=== PATIENT | female | born 1940 | race Caucasian/White ===

== ENCOUNTER 2022-07-18 22:32 | Inpatient (IN) | payer MEDICARE ==
[~2022-07-18] VITALS: Ht 157.5 cm; Wt 65.2 kg
[2022-07-19] VITALS (12 sets, daily range): BP systolic 11–130; BP diastolic 56–106
[2022-07-19 02:39] LABS: Source, Urine Clean Catch
[2022-07-19 02:52] LABS: Bilirubin, Urine Neg (Neg); Blood, Urine Neg (Neg); Glucose Qualitative, Urine Neg (Neg); Ketones, Urine Neg (Neg); Leukocyte Esterase, Urine Neg (Neg); Nitrite, Urine Neg (Neg); Protein, Urine Neg (Neg); Specific Gravity, Urine 1.015 (1.003-1.022); Urobilinogen, Urine NORM (Normal)
[2022-07-19 03:03] LABS: Appearance, Urine Clear (Clear); Color, Urine Yellow (P-Yellow)
[2022-07-19 06:22] LABS: BASOPHILS ABSOLUTE AUTO 0.06 K/mm3 (0.00-0.23); BASOPHILS PERCENT AUTO 0 % (0-2); EOSINOPHILS ABSOLUTE AUTO 0.01 K/mm3 (0.00-0.68); EOSINOPHILS PERCENT AUTO 0 % (0-6); Hematocrit 23.2 % (33.0-51.0); Hemoglobin 6.7 g/dL (11.5-16.0); IMMATURE GRAN ABSOLUTE AUTO 0.21 K/mm3 (0.00-0.10); IMMATURE GRAN PERCENT AUTO 1 % (0-1); LYMPHOCYTES ABSOLUTE AUTO 0.56 K/mm3 (0.84-5.20); LYMPHOCYTES PERCENT AUTO 3 % (21-46); MONOCYTES ABSOLUTE AUTO 1.54 K/mm3 (0.16-1.47); MONOCYTES PERCENT AUTO 7 % (4-13); Mean Corpuscular HGB 21.8 pg (26.0-34.0); Mean Corpuscular HGB Conc 28.9 g/dL (31.5-36.5); Mean Corpuscular Volume 76 fL (80-100); Mean Platelet Volume 11.1 fL (9.1-12.4); NEUTROPHILS ABSOLUTE AUTO 20.14 K/mm3 (1.96-9.15); NEUTROPHILS PERCENT AUTO 90 % (41-73); NRBC ABSOLUTE 0.04 K/mm3 (0.00-0.02); NRBC Auto 0.2 /100 WBC (0.0-0.2); Platelet Count 193 K/mm3 (150-400); RDW Coefficient Variation 17.7 % (11.7-14.2); RDW Standard Deviation 48.5 fL (35.1-46.3); Red Blood Cell Count 3.07 M/mm3 (3.80-5.20); White Blood Cell Count 22.52 K/mm3 (4.00-11.30)
[2022-07-19 06:56] LABS: Albumin, Blood 2.9 g/dL (3.4-5.0); Albumin/Globulin Ratio 0.9 (0.8-1.8); Bilirubin, Total 1.1 mg/dL (0.1-1.0); Bun/Creatinine Ratio 14.9 (12.0-20.0); Calcium, Blood 8.3 mg/dL (8.5-10.1); Creatinine, Blood 1.95 mg/dL (0.40-1.00); Globulin, Blood 3.3 g/dL (2.2-4.0); Potassium, Blood 3.8 mmol/L (3.5-5.5); Total Protein, Blood 6.2 g/dL (6.4-8.2)
--- NOTE | 2022-07-19 07:33 | NUR ---
SHIFT SUMMARY PT ARRIVED TO PCU VIA FLIGHT PLANE AT 0000. PT ALERT BUT ORIENTED ONLY TO SELF. PT CONFUSED; WAXES AND WANES BETWEEN PLEASANT AND RESISTANT TO CARE. VSS THROUGHTOUT, HR V PACED IN 80 - 90'S. PT REFUSED BATH, REFUSED TO BE STRAIGHT CATH'D EVEN THOUGH OF NOTE BLADDER SCAN SHOWED 650. PT WAS ABLE TO VOID A FEW TIMES SINCE TOTAL OF 400 OUT. PT REFUSED TO GET IN BED AT TIMES, HARD TO REDIRECT AT TIMES AND THEN OTHERS PT IS PLEASANT AND EASILY REDIRECTABLE. PT FINALLY ABLE TO REST A FEW HOURS, WAKES UP AND CALLS OUT WHEN SHE NEEDS SOMETHING, PT DOES NOT USE CALL LIGHT. BED ALARM ON. NO ACUTE CHANGES THIS SHIFT. WILL UPDATE ONCOMING TITUS
--- NOTE | 2022-07-19 10:14 | NUR ---
AM NOTE: PT ALERT AND ORIENTED TO PERSON AND SELF. ABLE TO ANSWER SOME QUESTIONS. PT COOPERATIVE WITH CARE MOST OF THE TIME. PT ABLE TO AMBULATE TO THE COMMODE WITH 1-2 PERSON ASSIST PT UNABLE TO VOID, BLADDER SCAN OBTAINED WITH [address] HERNÁNDEZ MADE AWARE AND WANTS TO CONTINUE TO MONITOR AND RESCAN IN TWO HOURS IF PT CONTINUES TO NOT VOID. PT STATES SHE HAS A SON AND A SIGNIFICANT OTHER HOWEVER WHEN ASKED WHO THEIR NAMES ARE PT STATES "IT BEATS THE HELL OUT OF ME WHO THEY ARE" . PT SBP IN THE 110'S WITH HR PACED IN THE 90'S. PT DENIES CHEST PAIN/ PRESSURE OR SOB. PT ABLE TO TOLERATE MEALS WITH NO C/O N/V. AT THE BEDSIDE THIS MORNING AND MADE PT MEDICAL STATUS WITH TELE. PT GOING TO RECEIVE 2 UNITS PRBC'S. WILL CONTINUE TO MONITOR.
--- NOTE | 2022-07-19 17:52 | NUR ---
SHIFT SUMMARY: NO ACUTE EVENTS T/O THE SHIFT. PT RECEIVED TWO UNITS PBRC'S WITHOUT COMPLICATIONS. PT REMAINED A&O X1-2 WITH SPELLS OF CONFUSION AND YELLING OUT FOR HELP, WITH MULTIPLE ATTEMPTS TO GET OUT OF BED AND SETTING BED ALARM OFF. PT ABLE TO AMBULATE TO THE BSC WITH 1-2 PERSON ASSIST. ABLE TO VOID AT TIMES WITH 200-300 ML OUTPUT, WITH EPISODES OF RETENTION. PT STRAIGHT CATHED THIS AFTERNOON WIHT 600 ML OUTPUT PER PROTOCOL. PT VSS, SBP IN THE 120'S, HR IN THE 90'S WITH BOUTS OF TACHYCARDIA TO THE 140'S ON EXERTION METOPROLOL IV ONE DOSE GIVEN BY PRIMARY RN PT MOSTLY STAYING IN THE 90-115'S. PT TRANSFERRED TO THE MEDICAL FLOOR AT 1745 ALL BELONGINGS SENT WITH THE PT, REPORT GIVEN TO CRISTOBAL Weiner RN. STEP-DAUGHTER AT THE BEDSIDE AND UPDATED TO PLAN OF CARE BROUGHT IN ADVANCE DIRECTIVE AN DPACEMAKER INFORMATION COPY IN THE CHART AND NOTIFIED PALLIATIVE CARE. PRIMARY RN CALLED DR. DEGROOT FOR F/U H&H TO F/U WITH MORNING LABS.
--- NOTE | 2022-07-19 19:14 | NUR ---
SHIFT SUMMARY/TRANSFER SUMMARY PT ARRIVED FROM PCU VIA BED. PT TUCKED IN, VITALS SIGNS, AND 2 RN SKIN ASSESSMENT COMPLETED. UP WITH HEAVY 2 ASSIST. AXO X1-2 AND INUPIAT. SEPSIS ALERT ON SHIFT ASSESSMENT DISCUSSED WITH TITUS CHATMAN LINUX SYSTEM ENGINEER NURSE WHO WILL ASSUME CARE AT THIS TIME. FULL REPORT GIVEN WELL. PT ON TELE. V-PACED AT 120 BUT RATE SPIKED UP TO 170 DURING THE CALL TO TELEMETRY. BED IN LOW POSITION, CALL LIGHT WITHIN REACH. PT'S DAUGHTER IN LAW CAME FROM [place] AND IS STAYING IN A HOTEL CLOSE BY.
--- NOTE | 2022-07-19 19:51 | NUR ---
CALLED HOSPITALIST INFORMED HIM OF PT'S ANEMIA AND HOSPITALIST'S PLAN TO HOLD ANTICOAGS FOR NOW. VERIFIED THAT WE ARE TO HOLD ELLIQUIS FOR THIS EVENING.
[2022-07-19] MEDS ORDERED: ELIQUIS5 M2 PO (20:02)
--- NOTE | 2022-07-19 20:19 | NUR ---
CALLED AUTOMOBILE RENTAL AGENT INFORMED HIM THAT TELEMETRY CALLED ME TO TELL ME ABOUT ST ELEVATIONS THAT HAVE BEEN PRESENT FROM ADMIT. I ALSO INFORMED HIM ABOUT REPORTED TACHYCARDIC EPISODES THAT ARE HAPPENING Q 15 MINUTES. NEW STAT LABS ORDERED, STAT EKG, SERIAL TROPONINS. PT PULLED OUT HER IV I WAS ON THE PHONE WITH THE AUTOMOBILE RENTAL AGENT. WE ARE ATTEMPTING TO RE-ESTABLISH VENOUS ACCESS NOW
[2022-07-19 20:59] LABS: BASOPHILS ABSOLUTE AUTO 0.06 K/mm3 (0.00-0.23); BASOPHILS PERCENT AUTO 0 % (0-2); EOSINOPHILS ABSOLUTE AUTO 0.01 K/mm3 (0.00-0.68); EOSINOPHILS PERCENT AUTO 0 % (0-6); Hematocrit 36.1 % (33.0-51.0); Hemoglobin 11.5 g/dL (11.5-16.0); IMMATURE GRAN ABSOLUTE AUTO 0.35 K/mm3 (0.00-0.10); IMMATURE GRAN PERCENT AUTO 1 % (0-1); LYMPHOCYTES ABSOLUTE AUTO 0.87 K/mm3 (0.84-5.20); LYMPHOCYTES PERCENT AUTO 3 % (21-46); MONOCYTES ABSOLUTE AUTO 2.56 K/mm3 (0.16-1.47); MONOCYTES PERCENT AUTO 9 % (4-13); Mean Corpuscular HGB 24.1 pg (26.0-34.0); Mean Corpuscular HGB Conc 31.9 g/dL (31.5-36.5); Mean Corpuscular Volume 76 fL (80-100); NEUTROPHILS ABSOLUTE AUTO 24.28 K/mm3 (1.96-9.15); NEUTROPHILS PERCENT AUTO 86 % (41-73); NRBC ABSOLUTE 0.15 K/mm3 (0.00-0.02); NRBC Auto 0.5 /100 WBC (0.0-0.2); Platelet Count 192 K/mm3 (150-400); RDW Coefficient Variation 17.2 % (11.7-14.2); RDW Standard Deviation 45.6 fL (35.1-46.3); Red Blood Cell Count 4.78 M/mm3 (3.80-5.20); White Blood Cell Count 28.13 K/mm3 (4.00-11.30)
--- NOTE | 2022-07-19 21:18 | NUR ---
FAMILY OF PATIENT CALLED REPORTS THAT THIS PATIENT HAS A HISTORY OF SHINGLES OUTBREAKS. PT HAS A NEWER RASH THAT HAS APPEARED UNDER THE LEFT BREAST. ANTI FUNGAL POWDER WAS APPLIED ON PREVIOUS SHIFT. THE CHARGE AND I VIEWED THIS RASH AND IT APPEARS TO BE FUNGAL IN ORIGIN. WE WILL CONTINUE TO MONITOR THIS.
--- NOTE | 2022-07-19 22:39 | NUR ---
SHIFT SUMMARY ADMITTED FOR AFIB W/RVR & ANEMIA & CHF FROM [facility]. DNR CODE. POSSIBLE PNEUMONIA. TELEMETRY REPORTS ST ELEVATIONS SINCE ADMIT, PERIODS OF TACHYCARDIA - UNSUSTAINED. 2 UNITS OF PRBC'S GIVEN FOR ANEMIA. TROPONIN WAS 464, NOW TROPONIN IS 566. WE ARE TRENDING TROPONINS. RASH UNDER RIGHT BREAST AND UNDER PANNUS, APPEARS FUNGAL. HOWEVER, PT DOES HAVE A HX OF SHINGLES ACCORDING TO FAMILY. WE ARE HOLDING ELIQUIS FOR NOW DUE TO ANEMIA. (BNP WAS 2412) SHE WAS GIVEN LASIX DURING AM SHIFT, AND IS NOW EXPERIENCING FREQUENCY. FAMILY REPORTS CONFUSION FOR THE PAST MONTH.
[2022-07-20 05:37] VITALS: BP 131/72
[2022-07-20 07:24] VITALS: BP 134/80
[2022-07-20 13:21] LABS: Hematocrit 35.6 % (33.0-51.0); Hemoglobin 11.1 g/dL (11.5-16.0); Mean Corpuscular HGB 23.9 pg (26.0-34.0); Mean Corpuscular HGB Conc 31.2 g/dL (31.5-36.5); Mean Corpuscular Volume 77 fL (80-100); Mean Platelet Volume 11.7 fL (9.1-12.4); NRBC Auto 0.4 /100 WBC (0.0-0.2); Platelet Count 201 K/mm3 (150-400); RDW Coefficient Variation 17.5 % (11.7-14.2); RDW Standard Deviation 47.6 fL (35.1-46.3); Red Blood Cell Count 4.65 M/mm3 (3.80-5.20)
[2022-07-20 14:18] LABS: Albumin, Blood 2.6 g/dL (3.4-5.0); Anion Gap 12 mmol/L (6-16); Blood Urea Nitrogen 42 mg/dL (8-24); Bun/Creatinine Ratio 19.7 (12.0-20.0); CO2, Blood 24 mmol/L (21-32); Calcium, Blood 8.6 mg/dL (8.5-10.1); Chloride, Blood 106 mmol/L (98-108); Creatinine, Blood 2.13 mg/dL (0.40-1.00); Glomerular Filtration Rate 23 (60-); Glucose, Blood 108 mg/dL (70-99); Phosphorus, Blood 4.5 mg/dL (2.5-4.9); Potassium, Blood 3.6 mmol/L (3.5-5.5); Sodium, Blood 142 mmol/L (136-145)
[2022-07-20 14:56] VITALS: BP 105/68
--- NOTE | 2022-07-20 17:14 | NUR ---
SHIFT SUMMARY ELIQUIS DCED UNTIL STOOL SAMPLE CAN BE COLLECTED. NO STOOL YET THIS SHIFT. PT HAD NEW PG PLACED TO OMAR OTHER IV ACCESS WAS NO LONGER PATENT. PT VERY SLEEPY TODAY, WHEN NOT BEING SPOKEN TO, FALLS ASLEEP EASILY. PT DOES TRY TO PULL OFF TELE AN PURE WIKE WHEN AWAKE HOWEVER. NO ACUTE CHANGES IN ASSESSMENT AT THIS TIME. VS REVIEWED. PT UP IN CHAIR WITH DAUGHTER IN ROOM.
[2022-07-20 20:10] VITALS: BP 125/84
--- NOTE | 2022-07-21 04:03 | NUR ---
SHIFT SUMMARY ADMITTED FOR AFIB W/RVR, ANEMIA, PNEUMONIA. DNR CODE. WE HAVE BEEN DIURESING HER. ANTIB RX ARE SCHEDULED. ECHO PERFORMED ON PREVIOUS SHIFT. RASH UNDER BREAST AND PANNUS. DIARRHEA REPORTED. MX LABS FOR ANEMIA. SHE WAS LIVING ALONE IN [place], REPORTEDLY DECLINING IN FUNCTION AND ADL'S OVER PAST MONTH. STEP DAUGHTER IS AVAILABLE TO HELP HER FOLLOWING DC. TELEMETRY: AFIB W/OCCASIONAL VENTRICULAR PACING @ 109 BPM. THIS SHIFT SHE REMOVED HER POWERGLIDE LINE. SHE HAS REMOVED ALL IV'S PLACED SINCE ADMIT. SHE IS A&O TO SELF MOSTLY. SHE IS ON RA. MEDS CRUSHED W/APPLESAUCE. CARDIAC DIET. SHE IS ON ELIQUIS AT HOME, CURRENTLY ON HOLD HERE.
[2022-07-21 07:21] VITALS: BP 113/79
[2022-07-21 10:32] LABS: Stool Occult Bld Immuno 1 Negative (NEGATIVE)
--- NOTE | 2022-07-21 11:38 | NUR ---
SPOKE TO DR HERNÁNDEZ- PT HAS BEEN GETTING MEDS CRUSHED IN APPLESAUCE FOR PT SAFETY. PT CAN NOT FOLLOW INSTRUCTIONS WELL TO SWALLOW MEDS WHOLE SO SHE WILL CHEW THEM. SPOKE TO PHARMACY SOME MEDS CAN BE CRUSHED AND SOME CAN'T. SPOKE TO MD ABOUT THE MEDS SHE WILL REVIEW AND MAKE CHANGES.
[2022-07-21 11:46] VITALS: BP 111/30
[2022-07-21 11:51] VITALS: BP 115/72
--- NOTE | 2022-07-21 12:40 | NUR ---
Initial palliative care consult: Melody is an 82 year old with a history of a-fib, pacemaker, HTN, hypothyroidism, anemia, CKD. She was transferred from the [facility] on 07/19/22 with a-fib with RVR and SHAR. Melody is confused. She is sitting in her bedside and falling asleep. Her step daughter, Ginny, is in the room. Ginny is getting ready to leave to head to [place] to meet her nephew who checks in on Melody. Ginny has been in contact with agencies in the [facility] to plan for Melody's discharge care. Emotional support provided to Melody and Ginny. Melody denies any discomfort at this time. CM has been working with Ginny re: discharge planning. PC will remain available for support for Ginny and Melody.
[2022-07-21 13:56] VITALS: BP 93/57
--- NOTE | 2022-07-21 14:22 | NUR ---
CALLED [facility] IN [address] TO TRY TO GET AN ACTIVE MEDICATION LIST FOR THE PT. WILL RECONCILE ONCE RECIEVED.
--- NOTE | 2022-07-21 14:59 | NUR ---
PT HAS NO IV ACCESS- CALLED DR HERNÁNDEZ EARLIER IN THE SHIFT AND SHE IS AWARE. PT HAS TELE AND IS SUPPOSED TO HAVE IV ACCESS WITH TELE. PT HAS BEEN ADIMANTLY REFUSING IV PLACEMENT TODAY. WILL SPEAK WITH HER MORE WHEN SHE WAKES FROM HER NAP.
[2022-07-21] MEDS ORDERED: METO50ER PO (15:18)
[2022-07-21] MEDS ORDERED: FURO20 PO (15:18)
[2022-07-21] MEDS ORDERED: LEVSOD25 PO (15:19)
[2022-07-21] MEDS ORDERED: LOSARTAN POTAS100 MG PO (15:19)
[2022-07-21] MEDS ORDERED: FEROSUL325 MG PO (15:20)
[2022-07-21 15:21] VITALS: BP 103/64
--- NOTE | 2022-07-21 18:09 | NUR ---
SHIFT SUMMARY PT IS AN 82 YR OLD FEMALE HERE FROM [place] WHERE SHE WAS LIVING ALONE. PER PTS STEP DAUGHTER AWAIS SUDDEN DECLINE. HX OF A FIB WITH RVR, RECENT PACER PLACEMENT, AND CHF. SHE IS ORIENTED TO PERSON AND RESPONSES TO VERBAL SIMULI, AND WILL OCCASSIONALLY OPEN EYES. RESPONSE WELL TO YES AND NO QUESTIONS. NO IV ACCESS DUE TO THE PATIENT REMOVING PERIPHERAL AND CENTRAL LINE ACCESS MULTIPLE TIMES. HBG ON 07/19 WAS 6.7, CORRECTED WITH 1 UNIT OF PRBC AND NOW STABLE AT 11.1. OCCULT STOOL NEGATIVE. SHE HAS BEEN SLEEPING MOST OF THE DAY, DENIES PAIN, PUREWICK IN PLACE AND IN BED AT THIS TIME.
[2022-07-21 19:21] VITALS: BP 119/64
[2022-07-22 03:08] VITALS: BP 109/79
[2022-07-22 05:49] LABS: Hematocrit 40.6 % (33.0-51.0); Mean Corpuscular HGB 24.5 pg (26.0-34.0); Mean Corpuscular Volume 77 fL (80-100); Mean Platelet Volume 11.2 fL (9.1-12.4); NRBC ABSOLUTE 0.04 K/mm3 (0.00-0.02); NRBC Auto 0.2 /100 WBC (0.0-0.2); RDW Standard Deviation 50.4 fL (35.1-46.3); Red Blood Cell Count 5.31 M/mm3 (3.80-5.20); White Blood Cell Count 25.37 K/mm3 (4.00-11.30)
[2022-07-22 06:06] LABS: Platelet Count 158 K/mm3 (150-400)
[2022-07-22 06:14] LABS: Albumin, Blood 2.6 g/dL (3.4-5.0); Anion Gap 13 mmol/L (6-16); Blood Urea Nitrogen 64 mg/dL (8-24); Bun/Creatinine Ratio 26.2 (12.0-20.0); CO2, Blood 26 mmol/L (21-32); Calcium, Blood 8.8 mg/dL (8.5-10.1); Chloride, Blood 105 mmol/L (98-108); Creatinine, Blood 2.44 mg/dL (0.40-1.00); Glomerular Filtration Rate 19 (60-); Glucose, Blood 124 mg/dL (70-99); Phosphorus, Blood 3.8 mg/dL (2.5-4.9); Sodium, Blood 144 mmol/L (136-145)
--- NOTE | 2022-07-22 06:49 | NUR ---
Shift Summary Pt AOx1, calls out in her sleep but denies any pain or nausea. On tele running AFIB at 115. Incontinent, purewick in place. Per report pt removed all attempts at IV and powerglide access despite them being heavily wrapped. Cooperative with care, slept t/o the night.
[2022-07-22 07:27] VITALS: BP 114/83
--- NOTE | 2022-07-22 14:58 | NUR ---
DR HERNÁNDEZ NOTIFIED OF BLADDER SCAN RESULTS, 58 ML AND THAT ECHO RESULTS FROM [facility]IE ARE IN THE CHART. DR HERNÁNDEZ TO REVIEW.
[2022-07-22 15:03] VITALS: BP 92/59
[2022-07-22 15:12] VITALS: BP 115/72
--- NOTE | 2022-07-22 19:15 | NUR ---
SHIFT SUMMARY PT AXO TO SELF ONLY. PT WAKES ONLY TO TACILE OR VERBAL STIMULATION. ANSWERS QUESTIONS "UH HUH" OR "NO." VSS. TAKES MEDICATIONS CRUSHED IN APPLESAUCE. NO ACUTE CHANGES THIS SHIFT. CT DONE TODAY, SEE RESULTS. BED IN LOW POSITION, CALL LIGHT WITHIN REACH. PT'S DAUGHTER AWAIS UPDATED AT END OF SHIFT. SHE STATES THAT KASI ALDANA WILL BE IN TO ASSESS PATIENT TOMORROW TO HELP AWAIS WITH PLACEMENT. NO IV IN PLACE AT THIS TIME R/T PT PULLING OUT ALL IV'S.
[2022-07-22 20:55] VITALS: BP 116/85
--- NOTE | 2022-07-23 01:10 | NUR ---
Afib Exasurbation Pt HR is spiking up to 150-[address] Nascimento who ordered 25 mg Metoprolol Tartrate PO now. Gave medication, will CTM.
[2022-07-23 02:42] VITALS: BP 110/78
[2022-07-23 05:54] LABS: BASOPHILS ABSOLUTE AUTO 0.05 K/mm3 (0.00-0.23); BASOPHILS PERCENT AUTO 0 % (0-2); EOSINOPHILS PERCENT AUTO 0 % (0-6); Hematocrit 38.3 % (33.0-51.0); Hemoglobin 11.9 g/dL (11.5-16.0); IMMATURE GRAN ABSOLUTE AUTO 0.25 K/mm3 (0.00-0.10); IMMATURE GRAN PERCENT AUTO 1 % (0-1); LYMPHOCYTES ABSOLUTE AUTO 0.48 K/mm3 (0.84-5.20); LYMPHOCYTES PERCENT AUTO 2 % (21-46); MONOCYTES PERCENT AUTO 9 % (4-13); Mean Corpuscular HGB 23.9 pg (26.0-34.0); Mean Corpuscular HGB Conc 31.1 g/dL (31.5-36.5); Mean Corpuscular Volume 77 fL (80-100); NEUTROPHILS ABSOLUTE AUTO 21.56 K/mm3 (1.96-9.15); NEUTROPHILS PERCENT AUTO 88 % (41-73); NRBC ABSOLUTE 0.02 K/mm3 (0.00-0.02); NRBC Auto 0.1 /100 WBC (0.0-0.2); RDW Coefficient Variation 20.3 % (11.7-14.2); RDW Standard Deviation 52.7 fL (35.1-46.3); Red Blood Cell Count 4.97 M/mm3 (3.80-5.20); White Blood Cell Count 24.54 K/mm3 (4.00-11.30)
[2022-07-23 06:25] LABS: Albumin, Blood 2.5 g/dL (3.4-5.0); Albumin/Globulin Ratio 0.7 (0.8-1.8); Bilirubin, Total 0.7 mg/dL (0.1-1.0); Bun/Creatinine Ratio 26.3 (12.0-20.0); Calcium, Blood 8.5 mg/dL (8.5-10.1); Creatinine, Blood 2.55 mg/dL (0.40-1.00); Globulin, Blood 3.5 g/dL (2.2-4.0); Magnesium, Blood 2.3 mg/dL (1.6-2.4); Percent Saturation 5.9 % (15.0-50.0); Potassium, Blood 3.1 mmol/L (3.5-5.5)
--- NOTE | 2022-07-23 06:32 | NUR ---
Shift Summary Pt had an AFIB exacurbation, was given a one time order of metropolol which helped the spikes in her HR, see nursing note. She was also crying out in distress and was restless. Called hospitalist who ordered 5mg Oxycodone one time. This greatly reduced her signs of pain but I was unable to wake her up enough to take her [address] draining small amounts of dark yellow urine. Pt did eat 1.5 cups of applesauce tonight which she enjoyed.
[2022-07-23 07:19] VITALS: BP 122/89
[2022-07-23 07:26] LABS: Mean Platelet Volume 10.6 fL (9.1-12.4)
[2022-07-23 07:32] LABS: Platelet Count 106 K/mm3 (150-400)
[2022-07-23 14:54] VITALS: BP 106/65
--- NOTE | 2022-07-23 15:16 | NUR ---
pt aggiated at time but mostly just resting. Review of pt with staff and physician. Physician review of comorbid conditions and new diagnosis presents as hospice the best option. Discussion with Nimo about comfort care she states that her and the family are in alignment with placing her on hospice and comfort care. notified physician and comfort orders placed. pt very petite and frail dosing modified to accomadate her age and size with permission from phsycian. Will adjust if needed. Long conversation with Nimo about a plan of care. She gave the names of some of the places she was going to call. She has started the medicaid process. advised her that [facility] is the home health and hospice team in their region. She states they know her from her partner and tried to work with her and she would not talk to them. Made tiffany call to have her put on list to hopefully avaoid delays. Will update care managers get formal consent and a plan. Called [facility] they do take patient on hospice. updated Nimo on some of this information. She is very fatigued and distraught. Will continue to support. comfort quilt placed.
[2022-07-23 15:35] VITALS: BP 117/80
--- NOTE | 2022-07-23 16:39 | NUR ---
SARABJIT WAS SOMNOLENT THROUGH MOST OF THE SHIFT, AND INTERMITTENTLY DIFFICULT TO ROUSE. PT DOES NOT OPEN HER EYES, AND RESPONDS WITH YES OR NO BUT NOT ALWAYS APPROPRIATELY. SHE WOKE UP FOR MEALS AND TOLERATED FOOD WELL WITH ENCOURAGEMENT. PT SEEMS ANXIOUS AND MOANS WHEN AWAKE AND ALONE IN ROOM. PT WAS CHANGED TO COMFORT CARE DURING THIS SHIFT.
--- NOTE | 2022-07-23 17:07 | NUR ---
AM ASSESSMENT I AGREE WITH THE STUDENT RN HIRO'S AM ASSESSMENT AND DOCUMENTATION ON THIS PATIENT TODAY
--- NOTE | 2022-07-24 05:33 | NUR ---
SHIFT SUMMARY RESPONDS TO VERBAL AND STIUMLI, ORIENTED TO SELF ONLY. COMFORT CARE MEASURES IN PLACE. MOANS OUT OFTEN. FACE SCALE 8/10, MEDICATED PER EMAR WITH GOOD EFFECT. BED IN LOWEST POSITION, ALARM ON, CALL LIGHT IN REACH. WILL CONTINUE TO MONITOR AND REPORT TO ONCOMING RN.
--- NOTE | 2022-07-24 17:02 | NUR ---
ASSESSMENTS I AGREE WITH THE STUDENT RN HIRO'S AM ASSESSMENT AND DOCUMENTATION OF THIS PT
--- NOTE | 2022-07-24 17:35 | NUR ---
PT IS ALERT RESPONDS TO VERBAL STIMULI DOES NOT OPEN HER EYES. THE PT SLEPT FOR MOST OF THE DAY AWAKENED FOR MEALS. THE PT WHEN AWAKE MOANED THOUGH SHE WAS IN PAIN PT WAS REPOSITIONED FREQUANTLY AND WAS MEDICATED FOR PAIN T/O THE DAY. PT APPEARS TO BE BREATHING EASILY ON RA. CALL LIGHT IN REACH. WILL CONTINUE TO MONIOTR AND ASSESS FOR CHANGES
[2022-07-25] MEDS ORDERED: ELIQUIS5 M3 PO (02:18)
--- NOTE | 2022-07-25 11:20 | NUR ---
SPOKE TO DR RILEY RE PT STILL MOANING. ROXANOL GIVEN, ATIVAN NOT AVAIL YET. SHE TO ADJUST MEDS
--- NOTE | 2022-07-25 12:35 | NUR ---
Care Conference: Spoke with pt's step daughter Nimo this am, she had continued questions about pt's living situation after this hospitalization. According to the notes and Nimo, the pt is unable to return home, as she has had severe mentation changes recently, going from fully independent to total care. She has declined to the point she is now on comfort care, awaiting placement. There was also some confusion on Nimo's part, as she is admittedly "overwhelmed" and is seeking and getting information from multiple sources. Working with Carmen, [employer] and Shanique at [facility] [employer] to create an appropriate d/c plan for this pt.
--- NOTE | 2022-07-25 13:20 | NUR ---
Pt no longer waking. She appears comfortable at this time, and both bedside RN and Hospitalist are aware. Informed pt's step-daughter that pt is transitioning, and will likely pass here at the hospital, and if the family is hoping to see her again, they will need to come here to [facility], and likely need to come in the next couple of days. Nimo mcgee Also called Shanique at [employer], thanked her for her time. Playroom Attendant also notified.
--- NOTE | 2022-07-25 19:29 | NUR ---
PT HAS BEEN SLEEPING, BREATHING EASILY, 12-16 RESP T/O DAY. GAVE ROXANOL THIS AM FOR HER MOANING OUT. SHE IS NOT ABLE TO EAT OR DRINK AT THIS TIME. I CALLED DR CONNORS TO ASK FOR INCREASED PAIN MEDS THIS AM SHE DID NOT APPEAR CONSOLED WITH THE 5 MG. WHEN I WENT TO GIVE, SHE WAS SLEEPING SOUNDLY, SHE WAS ABLE TO SLEEP FOR CLOSE TO 5 HOURS TODAY. UPON AWAKENING, SHE STARTED MOANING AGAIN. GAVE THE 10 MG ROXANOL. RESP THIS GABRIELA ARE AT ABOUT 28, FOR 20-30 SECONDS, THEN PAUSES FOR 10-15 SECONDS. H/R HAS MARIBEL AT 14O'S AND QUITE IRREGULAR THIS GABRIELA. PT DOES NOT RESPOND WHEN SPOKEN TO. BED IN LOW POSITION, CALL LITE IN REACH, BED ALARM ON FOR SFETY
--- NOTE | 2022-07-27 04:30 | NUR ---
SHIFT SUMMARY PATIENT HAD NO CHANGES. UNRESPONSIVE AND BEDREST WITH EYES CLOSED ON COMFORT CARE. NO S/SX OF PAIN OR DISTRESS. REPOSITION FREQUENTLY. SUCTION AND ORAL CARE PROVIDED. ON ROOM AIR. WARM TO TOUCH. CALL LIGHT IN REACH. BED IN LOWEST POSITION. WILL CONTINUE TO MONITOR UNTIL DAY SHIFT NURSE ASSUMES CARE.
--- NOTE | 2022-07-27 18:41 | NUR ---
PT SLEPT FOR MOST OF THIS SHIFT. SHE APPEARED COMFORTABLE. RECIEVED ORAL CARE THIS SHIFT. PT PASSED AT 1725 FAMILY NOTIFIED.
== END 2022-07-27 17:25 ==
LOC: PCU 22:32 → MEDS 07-19 00:04 → PCU 07-19 00:06 → MEDS 07-19 17:39
PROVIDERS: Family Medicine; Internal Medicine; Nurse Practitioner Acute Care; ADMIT Internal Medicine
PROC: 30233N1 Transfusion of Nonautologous Red Blood Cells into Peripheral Vein, Percutaneous Approach (ICD-10-PCS; principal; 2022-07-27)
DX: I48.20 Chronic atrial fibrillation, unspecified (principal); I21.A1 Myocardial infarction type 2; I50.23 Acute on chronic systolic (congestive) heart failure; I63.59 Cerebral infarction due to unspecified occlusion or stenosis of other cerebral artery; J18.9 Pneumonia, unspecified organism; D62 Acute posthemorrhagic anemia; I13.0 Hypertensive heart and chronic kidney disease with heart failure and stage 1 through stage 4 chronic kidney disease, or unspecified chronic kidney disease; N17.9 Acute kidney failure, unspecified; G93.49 Other encephalopathy; Z51.5 Encounter for palliative care; Z66 Do not resuscitate; D63.1 Anemia in chronic kidney disease; E03.9 Hypothyroidism, unspecified; I35.1 Nonrheumatic aortic (valve) insufficiency; R77.8 Other specified abnormalities of plasma proteins; R33.8 Other retention of urine; D50.9 Iron deficiency anemia, unspecified; N18.30 Chronic kidney disease, stage 3 unspecified; R62.7 Adult failure to thrive; I42.0 Dilated cardiomyopathy; Z98.890 Other specified postprocedural states; Z95.2 Presence of prosthetic heart valve; Z68.26 Body mass index [BMI] 26.0-26.9, adult; Z95.0 Presence of cardiac pacemaker
CPT/HCPCS: 36415; 36430; 70450; 80053; 80069; 81003; 82274; 82607; 82728; 82746; 83540; 83550; 83735; 83880; 84145; 84443; 84484; 85025; 85027; 85049; 86850; 86900; 86901; 86923; 93005; 93010; 94760; 97162; 97166; 97530; A9270; C8929; J1940; J1956; P9016; Q9957